=== PATIENT | female | born 1985 | race Caucasian/White ===

== ENCOUNTER 2020-04-10 09:11 | Emergency (ER) | payer OTHER, SELFPAY ==
[2020-04-10 09:32] VITALS: BP 126/86; PULSE 106; RESP 18; TEMP 37.3; O2SAT 99
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
[2020-04-10] MEDS: TETANUS,DIPHTHERIA,AC PERTUSSIS ADULT 0.5 ML (ADACEL) (10:47)
[2020-04-10] MEDS: SILVER SULFADIAZINE 1% CR 50 GM JAR (*BKC) 1 APPLIC TOPICAL (10:48)
== END 2020-04-10 10:53 | disposition home or self-care (01) ==
PROVIDERS: Emergency Provider Emergency Medicine
DX: T24.012A Burn of unspecified degree of left thigh, initial encounter (principal); X12.XXXA Contact with other hot fluids, initial encounter
CPT/HCPCS: 16020; 90471; 90715; 99283; A9270

== ENCOUNTER 2024-06-10 15:56 | Outpatient (CLI) | payer BC, SELFPAY ==
--- NOTE | ~2024-06-10 | XR_ITS ---
EXAMINATION: XR shoulder LT min 2V DATE: 06/10/2024 16:24 INDICATION: Dislocation of humerus, initial evaluation. TECHNIQUE: 4 views of left shoulder were obtained. COMPARISON: None. FINDINGS: Alignment is normal. No fracture. Joint spaces are normal. IMPRESSION: 1. Normal left shoulder. Reviewed, dictated and finalized at location B. IMPRESSION: 1. Normal left shoulder.
== END 2024-06-10 15:57 | disposition home or self-care (01) ==
PROVIDERS: PCP Nurse Practitioner Family
DX: S43.015A Anterior dislocation of left humerus, initial encounter (principal); X58.XXXA Exposure to other specified factors, initial encounter
CPT/HCPCS: 73030

== ENCOUNTER 2024-07-13 06:54 | Outpatient (CLI) | payer BC, SELFPAY ==
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
--- OUTSIDE RECORDS SUMMARY | 2024-07-13 06:58 | XMS_ITS | Data Portability ---
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 Class 2, EOSS 2. Wt loss goal of 10% to reduce risk of cardiometabolic dz and improve QoL. The patient has participated in an active weight management program for at least 6 months, including, but not limited to: reduced-calorie diet, increased physical activity, and behavior change and was unable to lose and maintain 5% of their BW. Secondary causes of obesity have been ruled out unless specified below. Nutrition: none Function: none Value: health 60 total minutes spent face-to face with patient counseling, and [id number] reviewing & ordering tests and medications, interpreting results, and coordinating care. [email or web address] Not available 07/27/2023 09:46:41 08/17/2023 08/17/2023 Estimated Energy Needs: Estimated energy needs: 1307 - 1568 kcal per day (25 - 30 kcal/kg IBW) Estimated protein needs: 63 - 84 gm protein per day (1.2 - 1.6 gm/kg IBW vs BMI 25) 141 lbs / 64 kg = 77 - 102 gm Estimated fluid needs: 1568 - 1830 mL per day (30 - 35 mL /kg IBW) Assessment Services rendered via a real-time (synchronous) interactive video and audio telecommunications system. Patient is here for MNT for obesity, HLD. Patient has a long history of dieting and weight cycling with no long-term success. Patient would like to lose weight to improve overall health and well-being. Diet recall reveals patient consumes a high intake of red meat and a low intake of non-starchy vegetables or fruit. 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 Medications and lab values reviewed; LDLc 116. Noted- patient unable to stay for the full visit, diet education deferred for f/u visit. Patient preference: -does not want to do keto or vegetarian -wants something sustainable; balanced diet with gradual changes [email or web address] Not available 08/17/2023 15:05:16 08/24/2023 08/24/2023 Services rendere d via a real-time (synchronous) interactive video and audio telecommunications system. Class 2, EOSS 2. Wt loss goal of 10% to reduce risk of cardiometabolic dz and improve QoL. The patient has participated in an active weight management program for at least 6 months, including, but not limited to: reduced-calorie diet, increased physical activity, and behavior change and was unable to lose and maintain 5% of their BW. Secondary causes of obesity have been ruled out unless specified below. Nutrition: HLD Function: none Value: health [email or web address] Not available 08/24/2023 09:00:08 08/30/2023 08/30/2023 Estimated Energy Needs: Estimated energy needs: 1307 - 1568 kcal per day (25 - 30 kcal/kg IBW) Estimated protein needs: 63 - 84 gm protein per day (1.2 - 1.6 gm/kg IBW vs BMI 25) 141 lbs / 64 kg = 77 - 102 gm Estimated fluid needs: 1568 - 1830 mL per day (30 - 35 mL /kg IBW) Assessment Services rendered via a real-time (synchronous) interactive video and audio telecommunications system. Patient is here for MNT for obesity, HLD. Patient has a long history of dieting and weight cycling with no long-term success. Patient would like to lose weight to improve overall health and well-being. Diet recall reveals patient consumes a high intake of red meat and a low intake of non-starchy vegetables or fruit. 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 Medications and lab values reviewed; LDLc 116. Discussed dietary strategies for cholesterol management, including the substitution of saturated fats with unsaturated fats, incorporating low-fat dairy and lean protein sources, boosting dietary fiber through the consumption of fruits, vegetables, whole grains, legumes, and nuts, reducing refined carbohydrates especially sugar, sweets and sugar-sweetened beverages, enhancing physical activity, and moderating alcohol consumption. Noted- patient informed she mainly eats lean red meat and does not like poultry (eats 1x per month), and prefers little fish (eats 1x every 3 months). Encouraged patient to limit fatty cuts/types of red meat like belle, sausage, and pepperoni to only 1-2x per month given saturated fat content. Furthermore, she states she avoids refined carbohydrates and makes her own bread products with wheat flour. Patient preference: -does not want to do keto or vegetarian -wants something sustainable; balanced diet with gradual changes [email or web address] Not available 08/30/2023 17:40:47 10/13/2023 10/13/2023 Services rendere d via a real-time (synchronous) interactive video and audio telecommunications system. Class 2, EOSS 2. Wt loss goal of 10% to reduce risk of cardiometabolic dz and improve QoL. The patient has participated in an active weight management program for at least 6 months, including, but not limited to: reduced-calorie diet, increased physical activity, and behavior change and was unable to lose and maintain 5% of their BW. Secondary causes of obesity have been ruled out unless specified below. Nutrition: HLD Function: none Value: health liane Not available 10/13/2023 10:15:27 Plan of Treatment Reminders Order Date Submit Date Provider Last Modified By Organization Details Last Modified Time Details Appointments None recorded. Lab lipid panel, serum 2023 024 [facility], [address], [place], [address], 05:01:43 HbA1c (hemoglobin A1c), blood 2023 024 [facility], [address], [place], [address], 4 05:01:43 CBC 2023 024 [email or web address], [address], [place], [address], 4 05:01:43 CMP, serum or plasma 2023 024 [facility], [address], [address], [place], [address], 4 05:01:43 TSH, serum or plasma 2023 024 [email or web address], [address], [address], [place], [address], 4 05:01:43 Referral None recorded. Procedures None recorded. Surgeries None recorded. Imaging None recorded. Medication Orders metformin ER 500 mg tablet,exte nded release 24 hr 2023 024 [facility], [facility] [place], [place], [id number], 4 09:24:22 bupropion HCl XL 150 mg 24 hr tablet, extended release 2023 024 5 [facility], [facility] [place], [place], [id number], 12:37:09 naltrexone 50 mg tablet 2023 024 [email or web address] 5 [facility], [facility] [place], [place], [id number], 4 12:37:19 Patient TargetsNo targets recorded. Patient Instructions Encounter Date Encounter Id Patient Instructions Last Modified By Organization Details Last Modified Time 08/17/2023 [id number] Recommend: 1) Heart-healthy diet Educated patient on: deferred Handouts provided: deferred Goals: deferred [email or web address] Not available 08/17/2023 15:05:44 08/30/2023 [id number] Recommend: 1) Heart-healthy diet a. Limit fatty cuts/types of red meat like belle, sausage, and pepperoni to only 1-2x per month given saturated fat content b. Add a serving of non-starchy vegetables to every lunch and dinner 2) Multivitamin and mineral supplement daily and take with food 3) Metamucil fiber supplement once daily Educated patient on: cholesterol-lower ing MNT Handouts provided: [facility] Heart-Healthy Nutrition Therapy, Heart Healthy Cooking Tips, Fiber Tips Goals: 1. Eat three balanced meals with adequate protein and a daily intake of fruit, vegetables, and healthy fats. 2. Decrease/eliminat e fast food and/or takeout meals. 3. Eliminate all sugar-sweetened beverages. 4. Drink at least 48-64 oz water or low-calorie fluids per day. 5. Track food intake using a food journal or digital david. 6. Aim for at least 150 minutes of moderate/vigorous physical activity per week [email or web address] Not available 08/30/2023 17:42:01 Reason for Referral None Reported. 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 Medical Equipment None Reported. Allergies No known drug allergies Medications Name Sig Start Date Stop Date Status Note LastModified by Organization Details LastModified Time naltrexone 50 mg tablet Take 1 tablet daily for 2 weeks then 2 tabs daily thereafte r 08/22 completed Not Available Not Available Not Available metformin ER 500 mg tablet,exte nded release 24 hr Take 3 tablets every day by oral route with meal(s) for 30 days. 10/07 completed Not Available Not Available Not Available bupropion HCl XL 150 mg 24 hr tablet, extended release Take 1 tablet every day by oral route as directed for 30 days. 08/22 completed Not Available Not Available Not Available Teodoroa (28) 0.15 mg-0.03 mg tablet 10/07 completed Not Available Not Available Not Available Vitals Date Recorded Body weight Provider Name an d Address Organization Details Last Updated DateTime 11/22/2023 33989 g Not Available [facility] 21:00:01 Date Recorded Body weight Provider Name an d Address Organization Details Last Updated DateTime 11/25/2023 12699 g Not Available [facility] 10:45:02 Date Recorded Body weight Body weight Provider Name and Address Organization Details Last Updated DateTime 11/27/2023 62163 g 3198 g Not Available [facility] 11/27/2023 10:45:02 Date Recorded Body weight Body weight Provider Name and Address Organization Details Last Updated DateTime 11/30/2023 92385 g 26543 g Not Available [facility] 11/30/2023 22:00:04 Date Recorded Body weight Body weight Provider Name and Address Organization Details Last Updated DateTime 12/01/2023 59504 g 46629 g Not Available [facility] 12/01/2023 12:55:03 Date Recorded Body weight Body weight Body weight Provider Name and Address Organization Details Last Updated DateTime 12/02/2023 72612 g 18492 g 50308 g Not Available [facility] 12/02/2023 21:00:05 Date Recorded Body weight Body weight Body weight Provider Name and Address Organization Details Last Updated DateTime 12/03/2023 91122 g 06320 g 61945 g Not Available [facility] 12/03/2023 23:45:04 Date Recorded Body weight Provider Name an d Address Organization Details Last Updated DateTime 12/04/2023 51165 g Not Available [facility] 10:50:04 Date Recorded Body weight Provider Name an d Address Organization Details Last Updated DateTime 12/05/2023 90811 g Not Available [facility] 07:20:03 Date Recorded Body weight Body weight Provider Name and Address Organization Details Last Updated DateTime 12/06/2023 20033 g 72571 g Not Available [facility] 12/06/2023 16:15:01 Date Recorded Body weight Body weight Body weight Body weight Body weight Provider Name and Address Organization Details Last Updated DateTime 12/07/2023 91655 g 06880 g 92425 g 94892 g 20241 g Not Available [facility] 12/07/2023 22:25:03 Date Recorded Body weight Provider Name an d Address Organization Details Last Updated DateTime 12/08/2023 86876 g Not Available [facility] 07:05:05 Date Recorded Body weight Body weight Provider Name and Address Organization Details Last Updated DateTime 12/14/2023 22943 g 31611 g Not Available [facility] 12/14/2023 11:35:03 Date Recorded Body weight Body weight Body weight Provider Name and Address Organization Details Last Updated DateTime 12/15/2023 60668 g 29250 g 51958 g Not Available [facility] 12/16/2023 13:20:02 Date Recorded Body weight Provider Name an d Address Organization Details Last Updated DateTime 12/16/2023 43637 g Not Available [facility] 13:20:02 Date Recorded Body weight Body weight Provider Name and Address Organization Details Last Updated DateTime 12/18/2023 11769 g 18015 g Not Available [facility] 12/18/2023 23:05:03 Date Recorded Body weight Provider Name an d Address Organization Details Last Updated DateTime 02/04/2024 5702 g Not Available [facility] 23:45:02 Date Recorded Body height Body mass index (BMI) Body weight Provider Name and Address Organization Details Last Updated DateTime 07/27/2023 160.02 cm 37.2 kg/m2 19254.4 g Delbert Mejia MD [address] [facility] [place] [address], [place], [address], [facility] 07/27/2023 09:02:33 Date Recorded Body weight Provider Name an d Address Organization Details Last Updated DateTime 08/08/2023 40310 g Not Available [facility] 024 20:45:02 Date Recorded Body weight Provider Name an d Address Organization Details Last Updated DateTime 08/09/2023 76798 g Not Available [facility] 024 07:05:09 Date Recorded Body weight Provider Name an d Address Organization Details Last Updated DateTime 08/10/2023 88701 g Not Available [facility] 024 07:10:03 Date Recorded Body weight Provider Name an d Address Organization Details Last Updated DateTime 08/11/2023 83753 g Not Available [facility] 024 07:00:04 Date Recorded Body weight Provider Name an d Address Organization Details Last Updated DateTime 08/12/2023 12107 g Not Available [facility] 024 10:35:03 Date Recorded Body weight Provider Name an d Address Organization Details Last Updated DateTime 08/13/2023 68236 g Not Available [facility] 11:05:02 Date Recorded Body weight Body weight Provider Name and Address Organization Details Last Updated DateTime 08/14/2023 94697 g 31869 g Not Available [facility] 08/14/2023 22:15:02 Date Recorded Body weight Provider Name an d Address Organization Details Last Updated DateTime 08/15/2023 57288 g Not Available [facility] 024 07:05:03 Date Recorded Body weight Provider Name an d Address Organization Details Last Updated DateTime 08/16/2023 08807 g Not Available [facility] 024 07:05:06 Date Recorded Body weight Body weight Provider Name and Address Organization Details Last Updated DateTime 08/17/2023 31947 g 47995 g Not Available [facility] 08/17/2023 08:40:01 Date Recorded Body height Body mass index (BMI) Body weight Provider Name and Address Organization Details Last Updated DateTime 08/17/2023 160.02 cm 38 kg/m2 35930.1 g PB MAYORGA, RD [address] [facility] [place] [address], [place], [address], [place] [facility] 08/17/2023 14:34:12 Date Recorded Body weight Provider Name an d Address Organization Details Last Updated DateTime 08/18/2023 51277 g Not Available [facility] 024 08:55:10 Date Recorded Body weight Provider Name an d Address Organization Details Last Updated DateTime 08/19/2023 50412 g Not Available [facility] [employer] 024 09:00:06 Date Recorded Body weight Body weight Body weight Provider Name and Address Organization Details Last Updated DateTime 08/20/2023 67876 g 42014 g 12349 g Not Available [facility] 08/20/2023 19:25:01 Date Recorded Body weight Body weight Body weight Body weight Provider Name and Address Organization Details Last Updated DateTime 08/21/2023 95316 g 52782 g 65283 g 50775 g Not Available [facility] 08/21/2023 14:00:04 Date Recorded Body weight Body weight Body weight Provider Name and Address Organization Details Last Updated DateTime 08/22/2023 75526 g 99179 g 64964 g Not Available [facility] 08/22/2023 08:50:01 Date Recorded Body weight Provider Name an d Address Organization Details Last Updated DateTime 08/23/2023 98879 g Not Available [facility] 10:10:03 Date Recorded Body height Body mass index (BMI) Body weight Provider Name and Address Organization Details Last Updated DateTime 08/24/2023 160.02 cm 37.7 kg/m2 02085.57 g Delbert Mejia MD [address] [facility] [place] [address], [place], [address], [facility] [employer] [facility] 08/24/2023 09:01:35 Date Recorded Body weight Provider Name an d Address Organization Details Last Updated DateTime 08/24/2023 9398 g Not Available [facility] 024 10:20:03 Date Recorded Body weight Provider Name an d Address Organization Details Last Updated DateTime 08/25/2023 56378 g Not Available [facility] 024 08:35:05 Date Recorded Body weight Provider Name an d Address Organization Details Last Updated DateTime 08/26/2023 96143 g Not Available [facility] 024 10:05:02 Date Recorded Body weight Provider Name an d Address Organization Details Last Updated DateTime 08/27/2023 54635 g Not Available [facility] 024 12:10:00 Date Recorded Body weight Provider Name an d Address Organization Details Last Updated DateTime 08/29/2023 38499 g Not Available [facility] 024 10:05:04 Date Recorded Body weight Body weight Provider Name and Address Organization Details Last Updated DateTime 08/30/2023 06894 g 8401 g Not Available [facility] 08/30/2023 11:20:02 Date Recorded Body weight Body height Body mass index (BMI) Body weight Provider Name and Address Organization Details Last Updated DateTime 08/30/2023 202459.68 g 160.02 cm 37.7 kg/m2 72831.78 g PB MAYORGA, RD [address] [facility] [place] [address], [place], [address], [facility] [employer] [facility] 08/30/2023 12:38:21 Date Recorded Body weight Provider Name an d Address Organization Details Last Updated DateTime 08/31/2023 71962 g Not Available [facility] 024 08:40:06 Date Recorded Body weight Provider Name an d Address Organization Details Last Updated DateTime 09/01/2023 06394 g Not Available [facility] 024 10:35:02 Date Recorded Body weight Provider Name an d Address Organization Details Last Updated DateTime 09/02/2023 55990 g Not Available [facility] 024 09:00:10 Date Recorded Body weight Provider Name an d Address Organization Details Last Updated DateTime 09/03/2023 04888 g Not Available [facility] 024 22:15:02 Date Recorded Body weight Provider Name an d Address Organization Details Last Updated DateTime 09/07/2023 02842 g Not Available [facility] 024 08:40:05 Date Recorded Body weight Provider Name an d Address Organization Details Last Updated DateTime 09/08/2023 39690 g Not Available [facility] 024 07:05:04 Date Recorded Body weight Provider Name an d Address Organization Details Last Updated DateTime 09/09/2023 43930 g Not Available [facility] 024 10:10:03 Date Recorded Body weight Provider Name an d Address Organization Details Last Updated DateTime 09/13/2023 39500 g Not Available [facility] 024 07:35:06 Date Recorded Body weight Provider Name an d Address Organization Details Last Updated DateTime 09/16/2023 57594 g Not Available [facility] 024 08:25:01 Date Recorded Body weight Provider Name an d Address Organization Details Last Updated DateTime 09/18/2023 44115 g Not Available [facility] 024 16:25:03 Date Recorded Body weight Body weight Body weight Provider Name and Address Organization Details Last Updated DateTime 09/19/2023 19993 g 6001 g 445664 g Not Available [facility] 09/19/2023 11:55:01 Date Recorded Body weight Provider Name an d Address Organization Details Last Updated DateTime 09/20/2023 72971 g Not Available [facility] 024 20:30:02 Date Recorded Body weight Provider Name an d Address Organization Details Last Updated DateTime 09/21/2023 14540 g Not Available [facility] 024 15:25:01 Date Recorded Body weight Body weight Provider Name and Address Organization Details Last Updated DateTime 09/22/2023 94206 g 058242 g Not Available [facility] 09/22/2023 22:30:05 Date Recorded Body weight Provider Name an d Address Organization Details Last Updated DateTime 09/24/2023 35687 g Not Available [facility] 024 12:15:01 Date Recorded Body weight Body weight Provider Name and Address Organization Details Last Updated DateTime 09/26/2023 85342 g 50523 g Not Available [facility] 09/26/2023 22:15:07 Date Recorded Body weight Provider Name an d Address Organization Details Last Updated DateTime 09/27/2023 05385 g Not Available [facility] 024 07:10:08 Date Recorded Body weight Provider Name an d Address Organization Details Last Updated DateTime 09/29/2023 45527 g Not Available [facility] 024 08:40:05 Date Recorded Body weight Provider Name an d Address Organization Details Last Updated DateTime 10/01/2023 69960 g Not Available [facility] 024 08:35:03 Date Recorded Body weight Body weight Provider Name and Address Organization Details Last Updated DateTime 10/11/2023 72918 g 45902 g Not Available [facility] 10/11/2023 12:35:02 Date Recorded Body weight Body weight Body weight Body weight Body weight Provider Name and Address Organization Details Last Updated DateTime 10/12/2023 19129 g 27196 g 2998 g 86347 g 25459 g Not Available [facility] 10/12/2023 15:00:00 Date Recorded Body weight Provider Name an d Address Organization Details Last Updated DateTime 10/13/2023 09614 g Not Available [facility] 07:40:02 Date Recorded Body height Body mass index (BMI) Body weight Provider Name and Address Organization Details Last Updated DateTime 10/13/2023 160.02 cm 37.4 kg/m2 91082.99 g Delbert Mejia MD [address] [place] [address], [place], [address], [facility] [employer] 10/13/2023 10:17:13 Date Recorded Body weight Provider Name an d Address Organization Details Last Updated DateTime 10/15/2023 94298 g Not Available [facility] 17:25:00 Date Recorded Body weight Body weight Provider Name and Address Organization Details Last Updated DateTime 10/16/2023 30596 g 38344 g Not Available [facility] 10/16/2023 12:30:01 Date Recorded Body weight Provider Name an d Address Organization Details Last Updated DateTime 10/17/2023 3602 g Not Available [facility] [employer] 024 09:25:02 Date Recorded Body weight Provider Name an d Address Organization Details Last Updated DateTime 10/18/2023 16453 g Not Available [facility] 024 08:00:11 Date Recorded Body weight Provider Name an d Address Organization Details Last Updated DateTime 10/25/2023 60810 g Not Available [facility] [employer] 024 22:50:03 Date Recorded Body weight Provider Name an d Address Organization Details Last Updated DateTime 11/04/2023 24578 g Not Available [facility] 14:25:00 Social History Question Answer Notes LastModified by Organizat ion Details LastModified Time Who Is Your Employer? [employer] Information not available 07/27/2023 What Is Your Occupation? [employer] 4 Information not available 07/27/2023 How Many Hours Per Day Do You Work, On Average? 10-12 Information no t available 07/27/2023 Do You Have Any Smart Health Monitoring Devices, Such As A Scale, Blood Pressure Monitor, Glucose Monitor, Or Smart Watch? If So, Please Note The Make And Model. No Information not available 07/27/2023 Are You Taking Any Sjak-nok-flwfmwz Medications, Supplements, Or Herbal Remedies? If Yes, Please Describe. No Information not available 07/27/2023 Do You Currently Smoke Cigarettes? No Information no t available 07/27/2023 Do You Currently Use A Vape Or E-cigarette? No Information not available 07/27/2023 Do You Currently Use Marijuana Or THC Products? No Information not available 07/27/2023 Do You Consume Alcohol? (any Quantity Or Frequency) Yes Information not available 07/27/2023 How Often Do You Drink Alcohol? 2 To 4 Times Per Month Information not available 07/27/2023 How Many Standard Drinks (1 Shot, 1 Beer, Or 1 Glass Of Wine) Do You Consume During A Typical Night Of Drinking? 1 Information not available 07/27/2023 Have You Ever Sought Treatment For Drinking? No Information not available 07/27/2023 Have You Ever [place] The Need To Cut Down On Drinking? No Information not available 07/27/2023 Have People Annoyed You By Criticizing Your Drinking? No Information not available 07/27/2023 Have You Ever [place] Guilty About Drinking? No Information not available 07/27/2023 Have You Ever [place] You Needed A Drink First Thing In The Morning To Steady Your Nerves Or To Get Rid Of A Hangover? No Information not available 07/27/2023 Have You Ever Been Dependent On Drugs Or Prescription Medications? No Information not available 07/27/2023 List Any Food Allergies, Intolerances, Or Sensitivities You Experience, With The Reaction And Its Severity. NOne Information not available 07/27/2023 List Any Food Preferences You Have. I Love Pastas Information not available 07/27/2023 With Whom Do You Live? Spouse And Two Daughters Information not available 07/27/2023 Who Prepares Most Of Your Meals? Undnm Information not available 07/27/2023 How Many Meals Per Week Do You Eat In Restaurants Or Order Takeout? One Information not available 07/27/2023 Describe What You Eat During A Typical Day With Meals (breakfast, Lunch, And Dinner), Snacks, And Beverages: [place], Sausage, Bagged Salad Kit Information not available 07/27/2023 How Many Glasses Of Water Do You Drink Per Day? 2 Information not available 07/27/2023 How Many Caffeinated Drinks Do You Consume Per Day? 1 Information not available 07/27/2023 How Many Carbonated Drinks Do You Consume Per Day? 9 Information not available 07/27/2023 Do You Drink Any Other Beverages, Including Alcoholic Beverages? Please Note The Type And Amount That You Drink Each Day. No Information not available 07/27/2023 Please Describe Any Food Cravings You Experience. Not Information not available 07/27/2023 Which Meal Is Your Biggest? Dinner Information not available 07/27/2023 On A Regular Basis, Do You Eat Breakfast? Yes Information not available 07/27/2023 On A Regular Basis, Do You Eat Lunch? Yes Information not available 07/27/2023 On A Regular Basis, Do You Eat Dinner? Yes Information not available 07/27/2023 Do You Often Skip Meals? If So, How Many Meals Do You Skip Per Day Or Week? No Information not available 07/27/2023 Have You Ever Been Diagnosed With An Eating Disorder? No Information not available 07/27/2023 Is Night Eating A Problem For You? No Information not available 07/27/2023 Do You Ever Get Up To Eat After You Have Gone To Bed? No Information not available 07/27/2023 During The Last Three Months, Did You Have Any Episodes Of Excessive Overeating (i.e., Eating Significantly More Than What Most People Would Eat In A Similar Period)? No Information not available 07/27/2023 Please Describe Any Diets You Have Tried, Such As Fasting, Low Carbohydrate, Calorie Restriction, Etc. Keto, Weight Watchers, Keto Information not available 07/27/2023 Have You Tried Anything In The Past To Change Your Habits, Your Health, Your Eating, And / Or Your Body? Yes Information not available 07/27/2023 Please Describe What You Tried That Worked Well For You, Even If You Might Not Be Doing It Right Now. [place] Information not available 07/27/2023 Please Describe What You Tried That Didn t Work Well For You. Gained Back Once [place] Information not available 07/27/2023 At What Age Were You First Overweight? 19 Information not available 07/27/2023 What Is Your Lowest Weight As An Adult, In Pounds? 168 Information not available 07/27/2023 How Long Did You Maintain Your Lowest Weight As An Adult? Nothing, Stopped Keto And It All Gained Back Information not available 07/27/2023 Please Describe Any Time That You Lost Ten Pounds Or More. Tell Us What You Did, And How Much Weight You Lost. Jeto Information not available 07/27/2023 Select The Description That Most Applies To You: I Am Active. I Can Complete All My Daily Activities Without Difficulty. Information not available 07/27/2023 Do You Currently Have An Exercise Routine? No Information not available 07/27/2023 How Would You Rate Your Current Sleep Quality, On A Scale From 1 (lowest) To 10 (highest)? 9 Information not available 07/27/2023 What Time Do You Normally Go To Sleep? No Information not available 07/27/2023 How Many Hours Do You Typically Sleep Each Night? 9 Information no t available 07/27/2023 Do You Snore? Yes Information not available 07/27/2023 Do You Feel Fatigued During The Day? No Information not available 07/27/2023 Do You Wake Up Feeling Like You Haven t Slept? No Information not available 07/27/2023 Have You Been Told You Stop Breathing At Night? No Information not available 07/27/2023 Have You Been Diagnosed With Sleep Apnea? No Information not available 07/27/2023 If You Do Not Currently Smoke Cigarettes, Have You Ever Smoked Cigarettes? No Information not available 07/27/2023 Do You Frequently Consume Any Of The Following: Fast Food, Processed Foods, Sweets, Junk Food, Soft Drinks, Takeout, And High-carb Meals (rice And Pasta)? Yes Information not available 07/27/2023 Do You Participate In Any Of The Following: Frequent Snacking/grazing, Late-night Eating, Infrequent Meals (e.g. One Meal Per Day), Disinhibited Eating (i.e. Lack Of Control)? No Information not available 07/27/2023 Please List Any Health Tracking Services Or Apps That You Use, Such As ScheduleSoft, Labels That Talk, WeDuc, Etc. No Information not available 07/27/2023 Please List Any Weight Loss Medications You Have Already Tried, Such As: Metformin, Adipex-P (Phentermine), Contrave (Bupropion), Qsymia (Phentermine-top iramate), Ozempic (Semaglutide), Wegovy (Semaglutide), Mounjaro (Tirzepatide), Saxenda (Liraglutide), Trulicity (Dulaglutide), Belviq (Lorcaserin), Xenical /Barry (Orlistat), Tenuate (Diethylpropion) , Or Didrex (Bensphetamine). Semaglutide Information no t available 07/27/2023 Sex: Unknown Functional Status None recorded. Mental Status None recorded. Family History Nothing Reported. Medical History Condition Response Headaches / Migraines Y Asthma Y Gynecological History Statement/Question Response How many biological children do you have ? 5 Current Control Method Withdrawal How many times have you been ? 2 Obstetrics History GPAL:G 0 P 0 0 0 0 Past Encounters Encounter ID Performer Location Encounter Start Date Encounter Closed Date Diagnosis/Indication Diagnosis SNOMED-CT Code Diagnosis ICD10 Code Diagnosis Note [id number] Delbert Mejia MD [facility] [address] [place] [address] 07/27/2023 08:04:42 07/30/2023 22:23:58 Central obesity 153473134 E66.8 Starting Weight: 210 lbsCurrent Weight: 210 lbs, BMI 37.2After discussion , we mutually agree it is in the patient's best interest to pursue intensive lifestyle interventi on that consists of the following: Nutrition: Counseled reduced-ca josue diet, dietary pattern per the discretion of Dietitian. Movement: counseled increase physical activity working with health passenger coach driver to find meaningful ways to moveBehavi or: counseled about mindfulnes sMeds:Week 1: Bupropion XL 150 mg once daily, Naltrexone 12.5 mg once dailyWeek 2: Bupropion XL 150 mg once daily, Naltrexone 12.5 mg once dailyWeek 3: Bupropion XL 300 mg once daily, Naltrexone 12.5 mg once dailyWeek 4: Bupropion XL 300 mg once daily, Naltrexone 25 mg once dailyRisks , benefits, alternativ es, and side effects discussed, and patient agreed on taking medication Hx--topira mate (intoleran ce), semaglutid e compoundLa bs: pendingOBG YN: withdrawal Care Management : refer for obesity, HLDMNT: refer for obesity, HLDRPM: start monitoring weight with RPM scale--pat ient has been counseled regarding the above programs and has agreed to the plan Pure hypercholesterolemia 350918994 E78.00 LDLc 116--couns eled about heart healthy diet--refe r for MNT with RD Body mass index 30+ - obesity 912874008 Z68.37 Mild inter mittent asthma 094400760 J45.20 albuterol inhaler [id number] [facility] [address] [place] [address] 08/17/2023 08:57:43 08/19/2023 04:05:08 Pure hypercholesterolemia 935592161 E78.00 Central obesity 31584047 1 E66.8 [id number] Delbert Mejia MD [facility] [address] [place] [address] 08/24/2023 07:58:32 08/25/2023 08:17:33 Pure hypercholesterolemia 721205825 E78.00 LDLc 116--couns eled about heart healthy diet--refe r for MNT with RD Central obesity 06551789 1 E66.8 Starting Weight: 216.5Curre nt Weight: 212.97 lbs, BMI 37.7After discussion , we mutually agree it is in the patient's best interest to pursue intensive lifestyle interventi on that consists of the following: Nutrition: Counseled reduced-ca josue diet, dietary pattern per the discretion of Dietitian. Movement: counseled increase physical activity working with health passenger coach driver to find meaningful ways to moveBehavi or: counseled about mindfulnes sMeds: self-disco ntinued bupropion/ naltrexone ; start metformin er 500 mg PO QDRisks, benefits, alternativ es, and side effects discussed, and patient agreed on taking medication Hx--topira mate (intoleran ce), semaglutid e compound, bupropion / naltrexone (intoleran ce)Labs: 08/2022, pending newOBGYN: withdrawal Care Management : CCM for obesity, HLDMNT: for obesity, HLDRPM: monitoring weight with RPM scale Body mass index 30+ - obesity 287629982 Z68.37 Fatigue 21021282 R53.83 Diabetes m ellitus screening 144487323 Z13.[id number] [facility] [address] [place] [address] 08/30/2023 09:01:41 08/31/2023 07:32:01 Pure hypercholesterolemia 828590984 E78.00 Central obesity 09119697 1 E66.8 [id number] Delbert Mejia MD [facility] [address] [place] [address] 10/13/2023 07:51:52 10/14/2023 08:16:20 Pure hypercholesterolemia 364455894 E78.00 LDLc 116--couns eled about heart healthy diet--refe r for MNT with RD--pendin g labs Central obesity 02130134 1 E66.8 Starting Weight: 216.5Curre nt Weight: 211 lbs, BMI 37.4After discussion , we mutually agree it is in the patient's best interest to pursue intensive lifestyle interventi on that consists of the following: Nutrition: Counseled reduced-ca josue diet, dietary pattern per the discretion of Dietitian. Movement: counseled increase physical activity working with health passenger coach driver to find meaningful ways to moveBehavi or: counseled about mindfulnes sMeds: discontinu ed metformin; counseled patient on medication s and pricing of LGP5Ot--az piramate (intoleran ce), semaglutid e compound, bupropion / naltrexone (intoleran ce); Metformin (GI intoleranc e)Labs: 08/2022, pending new labsOBGYN: withdrawal Care Management : CCM for obesity, HLDMNT: for obesity, HLDRPM: monitoring weight with RPM scale Body mass index 30+ - obesity 294851650 Z68.37 Fatigue 00147456 R53.83 Likely related to obesity and metabolic disease. Will rule out other hormonal conditions and anemia.--p ending labs Health Concerns Section Related Observation LastModified by Organization Detai ls LastModified Time None Recorded Concern Status LastModified by Organization Details LastModified Time None Recorded Advance Directives Directive None Recorded Payers Encounter Date Sequence Insurance Name Policy Number Policy Gill Covered Member ID Gill Member ID Guarantor Name 07/27/2023 1 [place] [employer] [id number] [id number] 08/17/2023 1 [place] [employer] [id number] [id number] [place] 08/24/2023 1 [place] [address] [id number] [place] 08/30/2023 1 [place] [employer] [address] [id number] [place] 10/13/2023 1 [place] [employer] [address] [id number] [place] [address] Notes Date Note Type Note Provider Name and Address Organization Details Recorded Time 07/27/2023 text/html Medical History Please describe any bariatric surgeries you have had, including the date, type, facility name, and any other information you believe is relevant. No Have you previously had an electrocardiogram (EKG)? No What is your current height 5 feet 3 inches What is your current weight? 210 pounds Additional Medications Additional Medications None Imported from [employer] on 07/27/2023 Delbert Mejia MD [address] [facility] [place] [address], [place], [address], [facility] [place] [employer] [facility] 07/27/2023 09:47:29 08/17/2023 text/html Diet History/Eat ing Patterns/Physical Activity GI issues or feeding difficulties:none 24-hour dietary recall: wakes up at 5:15 amBreakfast (7:45 am):egg and toast OR toast OR eggs, belle or sausage Snack:Skip Lunch (~2 pm):salad OR cottage cheese bowl w/marinara, cheese, pepperoni OR cottage cheese bowl - taco meat, lettuce Snack (4 pm):popcorn OR string cheese Dinner (7:30 pm):homemade burger OR broccoli and sausage and cream cheese and rice cauliflower OR cottage cheese bowl w/marinara, cheese, pepperoni OR cottage cheese bowl - taco meat, lettuce OR chicken and noodles OR homemade version of Hamburger [place] - ground beef, noodles, corn, and cheeseSnack:Skip Restaurant/takeout:1-2 x per week Estimated calorie/protein intake:<2500 calories Usual Fluid Consumption: Water:80 - 100 oz per day Caffeine:1 cup coffee w/creamer 2x per week Soda/sweetened beverages:none Alcohol:none Physical Activity (type/frequency/durati on, barriers to activity): 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, 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, 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, 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, 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, 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, 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, 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 to the animals (fu + carries food to the animals + walks the pigs) Type of bariatric surgery being considered:{{Gastric sleeve Gastric bypass Adjustable Gastric Band Revision None*}} PB MAYORGA, GIO [address] [facility], [place] [address], [place], [address], [employer] 08/17/2023 15:07:03 08/24/2023 text/html Additional Medic ations Additional Medications None Imported from [employer] on 08/24/2023 Delbert Mejia MD [address] [facility], [place] [address], [place], [address], [employer] 08/24/2023 09:24:35 08/30/2023 text/html Diet History/Eat ing Patterns/Physical Activity GI issues or feeding difficulties:none 24-hour dietary recall:wakes up at 5:15 amBreakfast (7:45 am):egg and toast OR toast OR eggs, belle or sausageSnack:SkipLunch (~2 pm):salad OR LF cottage cheese bowl w/marinara, cheese, pepperoni OR cottage cheese bowl - taco meat, lettuceSnack (4 pm):popcorn OR string cheeseDinner (7:30 pm):homemade burger OR broccoli and sausage and cream cheese and rice cauliflower OR cottage cheese bowl w/marinara, cheese, pepperoni OR cottage cheese bowl - taco meat, lettuce OR chicken and noodles OR homemade version of Hamburger [place] - ground beef, noodles, corn, and cheeseSnack:SkipRestau rant/takeout:1-2x per weekEstimated calorie/protein intake:<2500 calories Usual Fluid Consumption:Water:80 - 100 oz per dayCaffeine:1 cup coffee w/creamer 2x per weekSoda/sweetened beverages:noneAlcohol: none Physical Activity (type/frequency/durati on, barriers to activity):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, 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, 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, 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, 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, 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, 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, 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 to the animals (fu + carries food to the animals + walks the pigs) Type of bariatric surgery being considered:{{Gastric sleeve Gastric bypass Adjustable Gastric Band Revision None*}} PB MAYORGA, GIO [address] [facility], [place] [address], [place], [address], [employer] [facility] 08/30/2023 17:45:01 10/13/2023 text/html Additional Medic ations Additional Medications None Imported from [employer] on 10/13/2023 Delbert Mejia MD [address] [facility] [place] [address], [place], [address], [employer] 10/13/2023 10:27:50 OBGyn Episode No OBEpisode recorded.
--- OUTSIDE RECORDS SUMMARY | 2024-07-13 06:58 | XMS_ITS | Data Portability ---
Author Organization [place] - [facility] , [facility] Address [address] [place] [address] Assessment Encounter Date Assessment Date Assessment LastModified by Organization Details LastModified Time 02/28/2024 02/28/2024 Sinusitis - supported by the patient's symptoms of a sore throat, runny nose with green and yellow discharge, post-nasal drainage, and persistent symptoms for nearly a month, suggesting a bacterial component. - Prescribed Augmentin one tablet twice a day for seven days. - Advised the patient to continue using Flonase nasal spray one spray in each nostril twice a day. - Instructed on the proper technique for using Flonase to increase efficacy. 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 - Suggested jjjc-mbw-nkmcvqi cough suppressants like Mucinex, Delsym, or Robitussin for cough relief. - No additional follow-up or testing was required. I advised the patient if their symptoms worsen or do not improve, to call us back or seek in person care. Counseled on red flag symptoms to indicate need for emergent follow up. Diagnosis and treatment plan discussed with the patient, and they voice agreement and understanding of the plan. [email or web address] Not available 02/28/2024 08:02:19 Plan of Treatment Reminders Order Date Submit Date Provider Last Modified By Organization Details Last Modified Time Details Appointments None recorded. Lab None recorded. Referral None recorded. Procedures None recorded. Surgeries None recorded. Imaging None recorded. Medication Orders Augmentin 875 mg-125 mg tablet 2023 024 DEBBIE Mahan [facility], [address] [facility], [place], [place], [id number], 07:53:06 Patient TargetsNo targets recorded. Patient Instructions Encounter Date Encounter Id Patient Instructions Last Modified By Organization Details Last Modified Time 02/28/2024 [id number] Acute Sinusitis: Care Instructions [email or web address] Not available 02/28/2024 07:52:08 Summary of Today's Visit: During today's visit, we talked about your ongoing symptoms, including a sore throat, runny nose with green and yellow discharge, headaches, and cough with post-nasal drainage. You mentioned that these symptoms have persisted for nearly a month and that you are preparing for a trip, wanting to address your concerns before flying. Treatment Plan: We are prescribing Augmentin, an antibiotic, to help with any potential bacterial infection contributing to your symptoms. You will need to take one tablet twice a day for seven days. Also, continue using the Flonase nasal spray. Remember to apply it by tilting your head sideways, using one spray per nostril twice a day. Please stop taking Margarita and switch to Zyrtec-D instead, taking one tablet twice a day for at least six days to help with nasal congestion and ear pressure. Cough Management and Additional Instructions: For your cough, you can use rqwv-tar-unbqjtz options like Mucinex, Delsym, or Robitussin. Remember to obtain Zyrtec-D from behind the pharmacy counter, as it requires a coal tram driver's license for purchase. Be aware that Zyrtec-D can be stimulating, which might cause an elevated heart rate or blood pressure, but it's usually well-tolerated in healthy individuals. Follow-Up Actions: - Begin Augmentin: one tablet twice a day for seven days. - Use Flonase: one spray per nostril twice a day. - Switch to Zyrtec-D: one tablet twice a day for at least six days or until symptoms improve. - Choose an ivqw-tjs-ptikudb medication for your cough if needed. Travel Preparation: Ensure you start these treatments as soon as possible to feel better by your departure on Monday. Enjoy your trip and call us if symptoms persist or worsen. Safe travels! [email or web address] Not available 02/28/2024 08:02:35 Reason for Referral None Reported. Problems Name Problem SNOMED Code Status Onset Date Resolution Date Notes Provider Name and Address Organization Details Recorded Time Asthma [id number] Active 024 KARL EppsP [address], [address], [place] [facility] 07:46:39 Problem Notes None recorded. Medical Equipment None Reported. Allergies No known drug allergies Medications Name Sig Start Date Stop Date Status Note LastModified by Organization Details LastModified Time Augmentin 875 mg-125 mg tablet Take 1 tablet every 12 hours by oral route as directed for 7 days. 2023 active Not Available Not Available Not Avai lable amoxicillin 500 mg tablet 01/26 completed Not Available Not Available Not Available [place] 28 12/07 completed Not Available Not Available Not Available albuterol 90 mcg-budeson margarita 80 mcg/actuati on HFA aerosol inhaler Inhale by inhalatio n route as needed. active Not Available Not Available No t Available Vitals Date Recorded Body weight Body mass index (BMI) Body height Provider Name and Address Organization Details Last Updated DateTime 02/28/2024 30908.51 g 34.5 kg/m2 160.02 cm KARL EppsP 1 [facility] [address] [place] [address], [address] [place] [address], [place] [facility] 02/28/2024 07:48:08 Social History Question Answer Notes LastModified by Organizat ion Details LastModified Time Tobacco Smoking Status Never Smoker KARL Epps[address], [address] [place] [address], [place] [facility] 02/28/2024 07:47:41 What Is Your Level Of Alcohol Consumption? None Information not available 02/28/2024 What Is Your Level Of Caffeine Consumption? None Information not available 02/28/2024 Do You Use Any Illicit Or Recreational Drugs? No Information not available 02/28/2024 Do You Or Have You Ever Used Any Other Forms Of Tobacco Or Nicotine? No Information not available 02/28/2024 Sex: Unknown Functional Status None recorded. Mental Status None recorded. Family History Nothing Reported. Medical History No medical history recorded. Gynecological History Statement/Question Response Date of LMP 02/21/2024 Obstetrics History GPAL:G 0 P 0 0 0 0 Past Encounters Encounter ID Performer Location Encounter Start Date Encounter Closed Date Diagnosis/Indication Diagnosis SNOMED-CT Code Diagnosis ICD10 Code Diagnosis Note [id number] AMNA Lim [facility] [address] [place] [address] 02/28/2024 07:43:15 02/28/2024 13:52:23 Acute bacterial sinusitis 99193168 J01.90 Health Concerns Section Related Observation LastModified by Organization Detai ls LastModified Time None Recorded Concern Status LastModified by Organization Details LastModified Time None Recorded Advance Directives Directive None Recorded Payers Encounter Date Sequence Insurance Name Policy Number Policy Gill Covered Member ID Gill Member ID Guarantor Name 02/28/2024 1 [employer] [id number] [id number] 02/28/2024 2 *SELF PAY* [place] [id number] Notes Date Note Type Note Provider Name and Address Organization Details Recorded Time 02/28/2024 text/html This virtual encounter was conducted utilizing a synchronous video platform. Patient name/age/location were verified at the start of the visit. The patient/guardian provided consent for this video encounter prior to starting. The patient/guardian understands the limitations of not being physically examined in person and that we may not be able to address all issues via video. I was located in my home office in the [facility] and the patient was located in the state of [place]. The patient consents to the use of AI Scribe CC: Persistent sore throat and runny nose for a month HPI: The patient presents with a persistent sore throat and runny nose that has persisted for approximately one month. They report the character of the nasal discharge has changed to a bright green and yellow color. The patient experiences postnasal drainage and cough with phlegm noted in the back of the throat. Additionally, they have had intermittent headaches but have not felt feverish and have not measured their temperature. The patient experiences discomfort breathing through the mouth during sleep, which they suspect may contribute to their sore throat. The patient denies experiencing body aches, chills, dizziness, nausea, or vomiting in the past few days. They have a history of asthma and use an albuterol inhaler at night, which provides some relief. To manage symptoms, the patient has taken Flonase, Margarita, nasal rinses, elderberry supplements, cough drops, hot tea with honey, and ibuprofen, but these have not provided significant relief. The patient expresses concern regarding symptoms persisting into an upcoming plane trip due to the potential for ear discomfort from pressure changes. The patient denies allergies to medication and does not have other active medical conditions apart from asthma. The patient notes their last menstrual period occurred last week and reports no history of smoking, alcohol, caffeine, or marijuana use. Linda Morris, AMNA 1 [facility] [address], [place], [address], [facility] 02/28/2024 12:08:30 OBGyn Episode No OBEpisode recorded.
== END 2024-07-13 06:55 | disposition home or self-care (01) ==
LOC: CHSIMG 06:55
PROVIDERS: PCP Nurse Practitioner Family; Visit Provider Nurse Practitioner Family
DX: M25.512 Pain in left shoulder (principal); R20.0 Anesthesia of skin; R20.2 Paresthesia of skin; M24.412 Recurrent dislocation, left shoulder; M67.813 Other specified disorders of tendon, right shoulder
CPT/HCPCS: 73221

== ENCOUNTER 2024-12-04 10:07 | Outpatient (CLI) | payer BC, SELFPAY ==
--- NOTE | ~2024-12-04 | XR_ITS ---
EXAM/ PROCEDURE: XR shoulder LT min 2V - 12/04/2024 10:18 CDT HISTORY: 39 years old Female with Superior glenoid labrum lesion of left shoulder COMPARISON: None available TECHNIQUE: Three view(s) FINDINGS/ IMPRESSION: There are no fractures or dislocations.Joint spaces are within normal limits. Reviewed, dictated and finalized at location N.
== END 2024-12-04 10:08 | disposition home or self-care (01) ==
LOC: MICIMG 10:09
PROVIDERS: PCP Nurse Practitioner Family; Visit Provider Physician Assistant Surgical
DX: S43.432A Superior glenoid labrum lesion of left shoulder, initial encounter (principal); X58.XXXA Exposure to other specified factors, initial encounter
CPT/HCPCS: 73030

== ENCOUNTER 2024-12-16 01:09 | Day surgery (SDC) | payer BC, SELFPAY ==
[2024-12-13 08:06] VITALS: BMI 35.4
--- NOTE | 2024-12-13 08:13 | PC.NURSE ---
Report to the Outpatient Waiting Room, entrance under the green pavilion located off [facility], at time _1230_ on date _86[birth year]15-20[birth year]_. Planned Procedure Time: _230pm_.? Time changes happen often and if your time is changed the preop area will call you the afternoon before. - You and your visitor will be asked to self-screen and do not enter if you have any COVID symptoms. Please call surgeon if you need to reschedule. - A mask is optional within the hospital at this time. Patients may have clear liquids (water, carbonated beverages, clear teas, apple juice) until 3 hours prior to surgery with a maximum of 20 ounces. - No food from midnight until time of surgery and no smoking, or chewing tobacco (or any form of nicotine). No chewing gum, candy or mints. Take only the following medications with a SIP of water on the morning of surgery: __Inhaler if needed.___ DO NOT STOP ANY OF YOUR OTHER PRESCRIPTION MEDICATIONS PRIOR TO SURGERY EXCEPT THE FOLLOWING Hold all vitamins and supplements for 3 days per anesthesiologist. Medications to discontinue per physician No Ibuprofen until after surgery. Acetaminophen is OK to use. Date to take last dose Please no make-up, nail mozambican, hairspray, perfume, deodorant, or body powder the day of surgery.? No jewelry (including any body piercings) or valuables the day of surgery, leave them at home.? Please take a shower or bath the night before, or the morning of, surgery with an antibacterial soap.? Wear comfortable, loose fitting clothing.? - Jewelry must be removed prior to entering the operating room.? Rings and piercings that are not removed may be cut off. - The hospital will not accept responsibility for valuables.? - Please leave all valuables, including medications, at home the day of surgery. If you are going home after surgery, a licensed after school driver must drive you home.? - NO public transportation without another adult if you receive anesthesia. - We recommend that an adult stay with you for 24 hours following discharge. - We also recommend that you do not drive, make important decision, drink alcoholic beverages, or take any drugs that were not prescribed by your health care provider for at least 24 hours after your discharge time. Follow any additional instructions given to you from your surgeon. Telephone instructions given to __Whitney___and asked if any additional questions and then verbalized understanding. Patient advised to call surgeon office or pre surgery nurse liaison [phone] if any additional questions.
[2024-12-16] VITALS (8 sets, daily range): BP systolic 104–122; BP diastolic 61–80; PULSE 71–95; RESP 16–18; TEMP 36.6–36.9; O2SAT 97–100
--- OUTSIDE RECORDS SUMMARY | 2024-12-16 01:11 | XMS_ITS | Continuity of Care Document ---
Author Name 2ND.MD Mandie Address [address] [place] [address] Organization Unknown Address [address] [place] [address] Medications No known medications Problems No known problems
--- OUTSIDE RECORDS SUMMARY | 2024-12-16 01:11 | XMS_ITS | Clinical Summary ---
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 This disclosure is being madepursuant to the Care Everywhere program and may not contain all information available regarding this patient. Last updated 17.[employer] Allergies No known active allergies Medications * Be aware that medications may not be up to date on this document. Alwaysverify current medications with the patient. No known medications Active Problems Patient Care Coordination No te Formatting of this note migh t be different from the original. Negative first trimester screening Problem Noted Date Diagnosed Date Abnormal ultrasound-on outside scan 2013 Supervision of other high-risk 014 Overview (02/08/2015): Social History Tobacco Use Types Packs/Day Years Used Date Smoking Tobacco: Never Smokeless Tobacco: Never Comments No Sex and Gender Information Value Date Recorded Sex Assigned at Not on file Legal Sex Female 12:59 PM SIGHTSEEING GUIDE Gender Identity Not on file Sexual Orientation Not on file Last Filed Vital Signs Vital Sign Reading Time Taken Comments Blood Pressure 112/76 12/30/2016 9:54 AM CDT Pulse 77 12/30/2016 9:54 AM CDT Temperature 36.8 C (98.2 F) 12/30/2016 9:54 AM CDT Respiratory Rate 16 12/30/2016 9:54 AM CDT Oxygen Saturation 99% 12/30/2016 9:54 AM CDT Inhaled Oxygen Concentration - - Weight 79.4 kg (175 lb) 12/30/2016 9:54 AM CDT Height 160 cm (5' 3) 12/30/2016 9:54 AM CDT Body Mass Index 31 12/30/2016 9:54 AM CDT Plan of Treatment Health Maintenance Due Date Last Done Comments HIV SCREENING 2000 HEPATITIS C SCREENING 09/13/2003 DTAP/TDAP/TD VACCINES (1 - Tdap) 2004 HEPATITIS B VACCINE (1 of 3 - 19+ 3-dose series) 2004 HPV VACCINE (1 - 3-dose SCDM series) 2012 DEPRESSION SCREENING 04/03/2024 COVID-19 VACCINE (1 - 2023-2 5 season) 2024 INFLUENZA VACCINE (#1) 2024 ZOSTER VACCINE (1 of 2) 09/18/2035 HIB VACCINE Aged Out No longer eligi ble based on patient's age to complete this topic MENINGOCOCCAL (Group B) VACC INE SHARED DECISION-MAKING Aged Out No longer eligibl e based on patient's age to complete this topic MENINGOCOCCAL GROUPS A/C/Y/W VACCINE Aged Out No longer eligible b ased on patient's age to complete this topic PNEUMOCOCCAL VACCINE Aged Out No long er eligible based on patient's age to complete this topic Insurance [facility]
--- NOTE | 2024-12-16 10:23 | WPDHPUPDATE1 ---
History and Physical Update Update Date/Time: 12/16/24 10:23 History and Physical has been reviewed, including an updated exam of the patient. There are NO changes in the patient's condition. Risks, benefits, and alternatives have been discussed and questions answered. Patient agrees to proceed with procedure.
[2024-12-16] MEDS: LACTATED RINGERS 1,000 ML 30 ML IV CONT ×2 (13:15→16:25)
--- NOTE | 2024-12-16 13:17 | WPDANESEPPF ---
Anes - Initial Pre Proc Eval Procedure: Operation Date: 12/16/24 14:30 Proposed Procedures p Left Shoulder Arthroscopic Subacromial Decompression, Proceed as Indicated - Matthew Murcia MD Date/Time: 12/16/24 13:17 Surgeon: Matthew Murcia MD Pre Op Diagnosis: left shoulder SLAP tear, rotator cuff tendonitis Patient Data Age: 39 Gender: F Height: 1.6 m Weight: 90.9 kg Allergies Allergy/AdvReac Type Severity Reaction Status Date / Time No Known Allergies Allergy Mild Verified 12/13/24 08:05 Home Medications ?Medication ?Instructions ?Recorded ?Confirmed ?Type albuterol sulfate 90 mcg/actuation 1 inh inhalation Q4H PRN shortness 01/20/22 12/13/24 Rx aerosol inhaler (ProAir HFA) of breath or wheezing #8.5 grams hydrocodone 5 mg-acetaminophen 325 1 - 2 tablet PO Q4-6H PRN pain 7 12/16/24 Rx mg tablet days #30 tabs Patient hx anesthesia problems: none Family hx anesthesia problems: none Results Review: All pre-operative results and documents have been reviewed as part of the pre-operative evaluation. [facility] Past Medical History Medical History Asthma Migraine Surgical History Surgical History No significant past surgical history Social History Social History Smoking status: Never smoker Alcohol intake: current Drinks per week: 1 Substance use: never Do You Feel Safe in your Home?: Yes Lack of Transportation: No Lack of Food: Never True Current Housing: I Have Housing Concerned About Future Housing: No Difficulty Paying Gas/Electric Bills: No Difficulty Paying for Meds: No Currently Unemployed: No Education: Bachelor's Degree Difficulty w/ Childcare or Family Care: No Living arrangements: with family Spiritual care concerns: No Anes - Eval Final PreProcedure Day of Procedure 12/16/24 13:17 Patient weight: obese Heart: regular rate and rhythm Lungs: clear to auscultation Airway: Mallampati scale class II Neurological: alert and oriented Last oral intake: >/= 8 hours ASA classification: III Emergent: no Anesthetic plan: proceed Anesthesia type and monitoring: general ETT and standard monitoring Results Review: All pre-operative results and documents have been reviewed as part of the pre-operative evaluation. Informed Consent: The patient's anesthetic plan and its attendant risks and benefits were discussed with the patient/family/POA. Questions were solicited and answers provided to the satisfaction of the patient/family/POA.
[2024-12-16] MEDS: KETOROLAC 15 MG/ML VIAL (*BKC) IV PUSH (13:20)
[2024-12-16] MEDS: ACETAMINOPHEN 500 MG TABLET 1000 MG PO (13:20)
[2024-12-16 13:30] LABS: BEDSIDEPREGUCG Negative (Negative)
--- NOTE | 2024-12-16 14:38 | WPDANESPNB ---
Anes - Peripheral Nerve Block Date/Time: 12/16/24 14:38 I have discussed with the patient/family/POA the placement of a peripheral nerve block for post-operative pain management, including associated risks, benefits, complications, and side effects. Alternative methods of post-operative analgesia were detailed. Questions were solicited and answers provided to the satisfaction of the patient/family/POA. Time-Out: A pre-procedural Time-Out was completed immediately before starting the procedure and confirmed: Patient Identification, Site, Procedure, Patient Position and the Availability of Requisite Equipment. Clinical Indications: Acute post-operative pain management requested by the operative surgeon. Nerve Block Insertion Note Anes-nerve block: interscalene left Patient position: supine Skin prep: chlorhexidine Needle: 22 gauge, stimulating, insulated echogenic needle. Needle length: 50 mm Technique: ultrasound Injectate: bupivacaine 0.5% with epi 5 mcg/ml (30cc no epi) and dexamethasone (mg) (8) Observations: tolerated well Complications: none Procedure start time:: 1430 Procedure end time:: 143
[2024-12-16] MEDS: ceFAZolin 2 GM in SODIUM CHLORIDE 0.9% IV 50 ML 100 ML IVPB (15:02)
[2024-12-16] MEDS: BUPIVACAINE/EPINEPHRINE 0.5% 50 ML VIAL 30 ML INFILTRATE (15:39)
[2024-12-16] MEDS: EPINEPHrine HCL INJ 1 MG/ML AMPUL 2 MG IRRIGATION (15:42)
--- NOTE | 2024-12-16 16:24 | P.OP_ITS ---
Procedure Note - Detailed Date of Procedure 12/16/24 Pre-op Diagnosis Left shoulder SLAP tear, rotator cuff tendonitis Post-op Diagnosis Other (Left shoulder rotator cuff tendinitis with subacromial impingement.) Procedure Performed Left shoulder arthroscopic limited debridement with subacromial decompression Surgeon Matthew Murcia MD Nursery Rn Tnia Higgins PA-C Anesthesia General and Regional (Interscalene block) Findings Significant glenohumeral global laxity. Subtle evidence of internal impingement with slight fraying of the posterior superior rotator cuff. Corresponding hyperemia on the bursal side with very minimal fraying at the infraspinatus. Prominent anterolateral acromion. Biceps and labrum otherwise intact. Description of Procedure Preoperative antibiotics were given. Interscalene block was given in the preoperative holding area. The patient was brought to the operating room. Careful positioning in the beach chair was accomplished. The head neck were carefully positioned. A small bump was placed under the shoulder. The shoulder was prepped and draped in the usual sterile fashion. Examination under anesthesia performed. The shoulder had mild laxity. No gross instability. Standard posterior and anterior arthroscopic portals were established. Articular cartilage was normal. There was significant laxity with traction on the humerus pulling it away from the glenoid. The labrum had minimal fraying at the posterior superior aspect which corresponded with an area of fraying at the posterior superior rotator cuff, suggesting internal impingement. The biceps was otherwise normal as was the rest of the rotator cuff. The axillary pouch was normal but somewhat patulous. Attention was turned to the subacromial space. The bursa was prominent and a complete bursectomy was performed. There was some very minimal fraying in beginning at the infraspinatus musculotendinous junction area. The acromion was clearly visualized. The undersurface of the acromion was cleared with a radiofrequency probe. The prominent anterolateral bone was removed with the arthroscopic bur. Loose bone fragments were carefully irrigated from the joint. The arthroscopic instruments were removed. The wounds were closed with interrupted 4-0 Monocryl suture followed by Steri-Strips. A sterile dressing was applied with a sling. The patient was extubated and brought to the recovery room in stable condition. There were no complications. Estimated Blood Loss 10 Drains No Packing No Pathology None sent Complications No immediate complications Condition Stable Disposition PACU [facility] Billing Surgery - Charge Forward: Surgery Billing
== END 2024-12-16 18:08 | disposition home or self-care (01) ==
PROVIDERS: Physician Assistant Surgical; PCP Nurse Practitioner Family; Visit Provider Orthopaedic Surgery
PROC: (CPT 29805; principal; 2024-12-16 14:30)
DX: M75.82 Other shoulder lesions, left shoulder (principal); M75.42 Impingement syndrome of left shoulder; G89.18 Other acute postprocedural pain; J45.909 Unspecified asthma, uncomplicated; E66.9 Obesity, unspecified; Z68.36 Body mass index [BMI] 36.0-36.9, adult; Z79.51 Long term (current) use of inhaled steroids; Z79.891 Long term (current) use of opiate analgesic
CPT/HCPCS: 64415; 29822; J0690; A4565; A9270; J0166; J1100; J1885; J2003; J2250; J2405; J2704; J3010; J7120

== ENCOUNTER 2025-01-06 08:57 | Outpatient (RCR) | payer BC, SELFPAY ==
--- NOTE | 2025-01-06 09:56 | OPREHPOC ---
Outpatient Therapy Plan of Care This is a Multidisciplinary Plan of Care that may contain components documented by all disciplines (PT, OT, and ST.) PT Problem 1 PT Problem #1 Knowledge Deficit PT Goal 1 Goal / Goal Update Independent and compliant with HEP. Target Visit 2 PT Problem 2 PT Problem #2 Impaired Strength PT Goal 1 Goal / Goal Update Pt to improve bilat shoulder strength to 5/5. Target Visit 8 PT Problem 3 PT Problem #3 Impaired Functional Mobility PT Goal 1 Goal / Goal Update Pt to report 0% perceived disability on Quick DASH . 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 Target Visit 8
--- NOTE | 2025-01-06 09:56 | PTOPEVAL1 ---
Assessment and note entered by Nini Alan, PT Evaluation Information Assessment Status Evaluation ICD-10 Condition Codes (PT) Encounter for other orthopedic aftercare Z47.89 Other ICD-10 Condition Codes ( S43.432A PT) Onset 12/16/2024 Subjective Information Pt reports she had a cleanup surgery on her L shoulder. She was going in for a labral tear but she states that they only saw fraying, cleaned that up and removed a bone spur. She denies pain, initially had some soreness as it was healing but no longer has any of that, and reports she does not have any lifting restrictions. She follows up with her surgeon on January 29. Reported Pain Level Pain Score 0: Self Report Assessment PT Clinical Summary Mrs. Wyatt is a 39 yo female presenting to skilled PT visit s/p arthroscopic debridement and subacromial decompression. She demonstrates normal bilat shoulder AROM and denies pain but does demonstrate mild strength deficits in bilat shoulders. 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 Plan of Care Interventions Electrical Stimulation,Hot Pack/Cold Pack,Manual Therapy,Neuro Re-education,Patient/Caregiver Education,Therapeutic Activities,Therapeutic Exercise,Self-Care/Home Management Other Interventions TPDN PT Services Indicated Yes Treatment Frequency and 2x/week for 8 visits Duration These treatments will address the objective and functional deficits as defined above. The patient will be advanced safely and appropriately in order for the patient to progress towards his/her prior level of function. Additional exercises will be introduced and as well as a comprehensive home exercise program upon discharge, if needed, ?to ensure carryover of functional gains achieved in the clinic. This treatment plan has been reviewed and agreement upon by the patient.
--- NOTE | 2025-01-22 08:24 | OPREHPOC ---
Outpatient Therapy Plan of Care This is a Multidisciplinary Plan of Care that may contain components documented by all disciplines (PT, OT, and ST.) PT Problem 1 PT Problem #1 Knowledge Deficit PT Goal 1 Goal / Goal Update Independent and compliant with HEP. Target Visit 2 Progress Met PT Problem 2 PT Problem #2 Impaired Strength PT Goal 1 Goal / Goal Update Pt to improve bilat shoulder strength to 5/5. Target Visit 8 Progress Met PT Problem 3 PT Problem #3 Impaired Functional Mobility PT Goal 1 Goal / Goal Update Pt to report 0% perceived disability on [employer] . 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 -met Target Visit 8 Progress Met
--- NOTE | 2025-01-22 08:24 | PTOPDC ---
Assessment and note entered by Nini Alan, PT Evaluation Information Assessment Status Discharge ICD-10 Condition Codes (PT) Encounter for other orthopedic aftercare Z47.89 Other ICD-10 Condition Codes ( S43.432A PT) Onset 12/16/2024 Subjective Information [place] presents today for her 4th skilled PT visit following L shoulder surgery. She denies pain and reports that she is able to perform all daily functional and occupational tasks without pain or difficulty. She feels ready to discharge from therapy today. Reported Pain Level Pain Score 0: Self Report Assessment PT Clinical Summary Mrs. Wyatt has attended 4 skilled PT visits following L shoulder surgery. She denies pain and is able to perform all daily functional and occupational tasks without difficulty. She also demonstrates improvement in her L shoulder strength and has been independent with her HEP. She has met all therapeutic goals set for her and will be discharged from skilled PT this date, and she has a follow up visit with her surgeon on . Plan of Care PT Services Indicated No
== END 2025-01-22 20:00 | disposition home or self-care (01) ==
LOC: CHSPT 08:57
PROVIDERS: Visit Provider Orthopaedic Surgery
DX: S43.432A Superior glenoid labrum lesion of left shoulder, initial encounter (principal); Z47.89 Encounter for other orthopedic aftercare
CPT/HCPCS: 97110; 97112; 97161; 97530